=== PATIENT | female | born 1985 | race Caucasian/White ===

== ENCOUNTER 2020-03-23 11:26 | Outpatient (REF) | payer OTHER, SELFPAY ==
[2020-03-23 13:33] LABS: MANUAL DIFF FLAG NO
[2020-03-23 13:42] LABS: Basophils Percent Auto 0.3 % (0-2); Eosinophils Absolute Auto 0.1 X10*3/uL (0.0-0.4); Eosinophils Percent Auto 0.8 % (0-4); Hematocrit 41.8 % (37-47); Imm Gran Abs Auto 0.01 X10*3/uL (0.00-0.03); Imm Gran Pct Auto 0.2 % (0.0-0.4); Lymphocytes Percent Auto 33.1 % (20-40); Mean Corpuscular HGB Conc 33.5 g/dl (31.0-35.0); Mean Corpuscular Hemoglobin 30.5 pg (27.0-33.0); Mean Corpuscular Volume 91.1 fL (80-98); Monocytes Absolute Auto 0.5 X10*3/uL (0.1-1.2); Monocytes Percent Auto 8.3 % (2-11); Neutrophils Absolute Auto 3.5 X10*3/uL (2.0-8.3); Neutrophils Percent Auto 57.3 % (45-73); Platelet Count 168 X10*3/uL (160-400); Red Blood Count 4.59 X10*6/uL (4.20-5.50); Red Cell Distribution Width 12.3 % (11.0-16.0); White Blood Count 6.2 X10*3/uL (4.8-10.8)
[2020-03-23 13:44] LABS: Glucose Urine UA NEG (NEG); Leukocyte Esterase Urine NEG (NEG); Nitrite Urine NEG (NEG); PH 7.5 (5.0-8.0); Urine Blood NEG (NEG); Urine Ketones NEG (NEG); Urine Protein NEG (NEG-TRACE)
[2020-03-23 13:46] LABS: Appearance Urine CLEAR; Color Urine YELLOW
[2020-03-23 14:15] LABS: Alanine Aminotransferase 12 U/L (0-31); Albumin Level 4.3 g/dL (3.5-5.0); Alkaline Phosphatase 42 U/L (39-117); Anion Gap 13 (12-20); Aspartate Amino Transferase 13 U/L (5-31); Bilirubin Direct < 0.2 mg/dL (0.0-0.5); Bilirubin Total 0.3 mg/dL (0.0-1.0); Blood Urea Nitrogen 16 mg/dL (9-16); Calcium 9.1 mg/dL (8.4-10.2); Carbon Dioxide 27 mmol/L (22-29); Chloride 106 mmol/L (96-108); Cholesterol 190 mg/dL; Estimated Glomerular Filt Rate > 60; Glucose Fasting 74 mg/dL (60-99); HDL Cholesterol 55 mg/dL; LDL Cholesterol Calculated 105 mg/dl; Potassium 4.6 mmol/l (3.3-5.1); Sodium 141 mmol/L (135-145); Total Protein 6.9 g/dL (6.5-8.0); Triglycerides 153 mg/dL
[2020-03-23 14:32] LABS: Thyroid Stimulating Hormone 0.49 mIU/mL (0.32-4.0)
== END 2020-03-23 11:27 | disposition home or self-care (01) ==
LOC: HO.WFDLDS 11:26
PROVIDERS: PCP Hospitalist; Visit Provider Hospitalist
DX: Z00.00 Encounter for general adult medical examination without abnormal findings (principal)
CPT/HCPCS: 36415; 80048; 80061; 80076; 81003; 84443; 85025

== ENCOUNTER 2020-05-04 11:45 | Outpatient (REF) | payer OTHER, SELFPAY ==
--- NOTE | 2020-05-04 11:53 | XR_ITS ---
EXAMINATION: XR ABDOMEN KUB CLINICAL INDICATION: Gastroenteritis and colitis and colitis COMPARISON: None TECHNIQUE: AP view of the abdomen. FINDINGS: The bowel gas pattern is normal. There is no evidence of free air. No calcifications are seen. Bony structures are unremarkable. XR/XR KUB IMPRESSION: Unremarkable examination.
== END 2020-05-04 11:46 | disposition home or self-care (01) ==
LOC: HO.XRAY 11:45
PROVIDERS: PCP Hospitalist; Visit Provider Hospitalist
DX: K52.9 Noninfective gastroenteritis and colitis, unspecified (principal)
CPT/HCPCS: 74018

== ENCOUNTER 2020-07-27 10:31 | Outpatient (REF) | payer OTHER, SELFPAY ==
[2020-07-27 13:55] LABS: MANUAL DIFF FLAG NO
[2020-07-27 13:59] LABS: Basophils Percent Auto 0.4 % (0-2); Eosinophils Absolute Auto 0.1 X10*3/uL (0.0-0.4); Eosinophils Percent Auto 1.7 % (0-4); Hematocrit 40.2 % (37-47); Hemoglobin 13.5 g/dl (12.0-16.0); Imm Gran Abs Auto 0.01 X10*3/uL (0.00-0.03); Imm Gran Pct Auto 0.2 % (0.0-0.4); Lymphocytes Absolute Auto 1.5 X10*3/uL (1.2-4.9); Lymphocytes Percent Auto 32.6 % (20-40); Mean Corpuscular HGB Conc 33.6 g/dl (31.0-35.0); Mean Corpuscular Hemoglobin 30.3 pg (27.0-33.0); Mean Corpuscular Volume 90.3 fL (80-98); Mean Platelet Volume 10.7 fL (9.4-12.3); Monocytes Absolute Auto 0.5 X10*3/uL (0.1-1.2); Monocytes Percent Auto 9.8 % (2-11); Neutrophils Absolute Auto 2.6 X10*3/uL (2.0-8.3); Neutrophils Percent Auto 55.3 % (45-73); Platelet Count 221 X10*3/uL (160-400); Red Blood Count 4.45 X10*6/uL (4.20-5.50); Red Cell Distribution Width 12.7 % (11.0-16.0); White Blood Count 4.7 X10*3/uL (4.8-10.8)
[2020-07-27 14:34] LABS: Alanine Aminotransferase 12 U/L (0-31); Aspartate Amino Transferase 13 U/L (5-31)
[2020-07-27 14:42] LABS: Valproate 92.2 mcg/mL (50.0-100.0)
== END 2020-07-27 10:32 | disposition home or self-care (01) ==
LOC: HO.HMGCLDS 10:31
PROVIDERS: PCP Hospitalist; Visit Provider Nurse Practitioner Psychiatric/Mental Health
DX: F31.81 Bipolar II disorder (principal)
CPT/HCPCS: 36415; 80164; 84450; 84460; 85025

== ENCOUNTER 2020-09-09 12:27 | Outpatient (REF) | payer OTHER, SELFPAY ==
--- NOTE | ~2020-09-09 | XR_ITS ---
EXAMINATION: XR HAND, BILATERAL CLINICAL INFORMATION: Lupus erythematosus COMPARISON: None available at the time of this dictation. TECHNIQUE: Frontal lateral oblique view of each hand total of 6 views of the hand were obtained. Bilateral scaphoid view. FINDINGS: There is no fracture or dislocation. Radiocarpal, intercarpal, carpometacarpal, metacarpophalangeal and interphalangeal joints are intact. There are no osteolytic or osteoblastic lesions. There are no bone erosions. Surrounding soft tissue unremarkable. XR/XR hand wrist LT IMPRESSION: No radiographic evidence of significant osseous changes.
--- NOTE | ~2020-09-09 | XR_ITS ---
EXAMINATION: XR HAND, BILATERAL CLINICAL INFORMATION: Lupus erythematosus COMPARISON: None available at the time of this dictation. TECHNIQUE: Frontal lateral oblique view of each hand total of 6 views of the hand were obtained. Bilateral scaphoid view. FINDINGS: There is no fracture or dislocation. Radiocarpal, intercarpal, carpometacarpal, metacarpophalangeal and interphalangeal joints are intact. There are no osteolytic or osteoblastic lesions. There are no bone erosions. Surrounding soft tissue unremarkable. XR/XR hand wrist RT IMPRESSION: No radiographic evidence of significant osseous changes.
[2020-09-09 13:48] LABS: MANUAL DIFF FLAG NO
[2020-09-09 13:54] LABS: Basophils Percent Auto 0.3 % (0-2); Eosinophils Absolute Auto 0.1 X10*3/uL (0.0-0.4); Eosinophils Percent Auto 0.9 % (0-4); Hematocrit 38.9 % (37-47); Hemoglobin 13.2 g/dl (12.0-16.0); Imm Gran Abs Auto 0.02 X10*3/uL (0.00-0.03); Imm Gran Pct Auto 0.3 % (0.0-0.4); Lymphocytes Absolute Auto 2.1 X10*3/uL (1.2-4.9); Lymphocytes Percent Auto 37.2 % (20-40); Mean Corpuscular HGB Conc 33.9 g/dl (31.0-35.0); Mean Corpuscular Hemoglobin 30.3 pg (27.0-33.0); Mean Corpuscular Volume 89.2 fL (80-98); Mean Platelet Volume 10.4 fL (9.4-12.3); Monocytes Absolute Auto 0.4 X10*3/uL (0.1-1.2); Neutrophils Absolute Auto 3.1 X10*3/uL (2.0-8.3); Neutrophils Percent Auto 54.3 % (45-73); Platelet Count 165 X10*3/uL (160-400); Red Blood Count 4.36 X10*6/uL (4.20-5.50); Red Cell Distribution Width 12.3 % (11.0-16.0); White Blood Count 5.7 X10*3/uL (4.8-10.8)
[2020-09-09 14:13] LABS: Alanine Aminotransferase 13 U/L (0-31); Albumin Level 4.1 g/dL (3.5-5.0); Alkaline Phosphatase 40 U/L (39-117); Anion Gap 12 (12-20); Aspartate Amino Transferase 15 U/L (5-31); Bilirubin Total 0.3 mg/dL (0.0-1.0); Blood Urea Nitrogen 17 mg/dL (9-16); C Reactive Protein 0.09 mg/dL (< or = 0.50); Calcium 9.5 mg/dL (8.4-10.2); Carbon Dioxide 27 mmol/L (22-29); Chloride 104 mmol/L (96-108); Estimated Glomerular Filt Rate > 60; Glucose Random 96 mg/dL (60-115); Potassium 3.9 mmol/L (3.3-5.1); Sodium 139 mmol/L (135-145); Total Protein 6.6 g/dL (6.5-8.0)
[2020-09-09 14:51] LABS: Erythrocyte Sedimentation Rate 4 MM/HR (0-20)
[2020-09-09 18:35] LABS: Glucose Urine UA NEG (NEG); Leukocyte Esterase Urine NEG (NEG); Nitrite Urine NEG (NEG); Specific Gravity - Urine 1.015 (1.005-1.025); Urine Blood NEG (NEG); Urine Ketones NEG (NEG); Urine Protein NEG (NEG-TRACE)
[2020-09-09 18:37] LABS: Appearance Urine CLEAR; Color Urine YELLOW
[2020-09-09 18:41] LABS: Bacteria Urine TRACE /LPF; RBC Urine 0 /HPF (0); Squamous Epithelial Cell Urine TRACE /LPF; WBC Urine 0 /HPF (0-4)
[2020-09-10 13:12] LABS: Anti DNA DS Antibody 1 IU/mL; Antibody to SS-A Antigen >8.0 POS AI (<1.0 NEG); Antibody to SS-B Antigen <1.0 NEG AI (<1.0 NEG); SM/Ribonucleoprotein Ab <1.0 NEG AI (<1.0 NEG); Smith Protein <1.0 NEG AI (<1.0 NEG)
[2020-09-10 22:28] LABS: Anti Nuclear Antibody Screen POSITIVE (NEGATIVE); Anti Nuclear Antibody Titer 1:40 titer
[2020-09-13 19:51] LABS: Complement C3 87 mg/dL (83-193)
== END 2020-09-09 12:28 | disposition home or self-care (01) ==
LOC: HO.XRAY 12:27
PROVIDERS: PCP Hospitalist; Referring Provider Hospitalist; Visit Provider Student in an Organized Health Care Education/Training Program
DX: L93.2 Other local lupus erythematosus (principal)
CPT/HCPCS: 36415; 73110; 73130; 80053; 81001; 85025; 85652; 86038; 86039; 86140; 86160; 86225; 86235; 99202

== ENCOUNTER → 2020-09-24 13:07 | Outpatient (BNVA) | payer OTHER, SELFPAY | PROVIDERS: PCP Hospitalist; Visit Provider Student in an Organized Health Care Education/Training Program ==

== ENCOUNTER 2023-09-24 09:37 | Outpatient (AMB) | payer OTHER, SELFPAY ==
[2023-09-24 10:40] VITALS: BP 128/76; PULSE 73; TEMP 36.6; O2SAT 99; BMI 28.6
--- NOTE | 2023-09-24 10:40 | AM.OFFWIN_ITS ---
Intake Vital Signs 09/24/23 10:40 Height 5 ft 3 in Weight 161 lb 8 oz BMI 28.6 BP 128/76 Blood Pressure Location Lt brachial Position Sitting Pulse 73 Pulse Source Pulse Oximeter Temp 97.8 F Temp Source Oral Pulse Oximetry (%) 99 Oxygen Delivery Method Room Air Intake Visit Reasons: EP ?RT pink Eye Intake Note: Pt presents to the office today for c/o ? pink eye in right eye. She states it started sunday and she thought it was a stye but now she states she is having green discharge coming out of it and it is crusting over. Allergies No Known Allergies [No Known Allergies*] Allergy (Verified 09/24/23 10:52) Medication List - Last Reconciled 09/24/23 by Castillo Herbert MD divalproex ER mg PO .three times a day ibuprofen 800 mg PO Q8H PRN propranolol 20 mg PO BID HPI EP ?RT pink Eye HPI Details 38 yr old female presents to the office for a sick visit. Pain and discharge from the right eye. Does not use contact lenses. Crusting in the right eye. [facility] Surgical History No pertinent past surgical history Family History Father No problems noted. Mother No problems noted. Social History Alcohol intake: never Cigarettes Per Day: 7 Years Smoked: 15 Physical Exam Vital Signs: Last Vital Signs Temp 97.8 F 09/24/23 10:40 Pulse 73 09/24/23 10:40 BP 128/76 09/24/23 10:40 Pulse Ox 99 09/24/23 10:40 Oxygen Delivery Method Room Air 09/24/23 10:40 BMI result Body Mass Index 28.6 Eyes Other: Right eye: Bulbar conjunctiva congestion. Cornea is clear. AC is clear. No digital tenderness. Assessment & Plan Assessment & Plan (1) Conjunctivitis: Code(s): H10.9 - Unspecified conjunctivitis Plan: Emycin oph ointment called in. If sx not better to follow up here. Coding Level of Care Code Est Pt Level 3 (17196) Diagnoses Conjunctivitis H10.9
== END 2023-09-24 11:35 | disposition home or self-care (01) ==
PROVIDERS: PCP Hospitalist; Visit Provider Internal Medicine
DX: H10.9 Unspecified conjunctivitis (principal)
CPT/HCPCS: 99213

== ENCOUNTER 2024-01-29 10:08 | Outpatient (AMB) | payer OTHER, SELFPAY ==
--- NOTE | 2024-01-29 10:58 | AM.OFFWIN_ITS ---
Intake Vital Signs 01/29/24 11:05 Weight 161 lb BP 120/78 Blood Pressure Location Lt brachial Position Sitting Pulse 78 Pulse Source Pulse Oximeter Temp 97.7 F Temp Source Oral Pulse Oximetry (%) 98 Oxygen Delivery Method Room Air Intake Visit Reasons: EP ?ear Infection [phone] Intake Note: Patient here for possible bilat ear infection which has been present for about 3-4 days. Patient Tobacco Use Status: Current everyday Tobacco user Allergies No Known Allergies [No Known Allergies*] Allergy (Verified 01/29/24 11:00) Do you need a note to return to daycare/school/sports/work: No HPI HPI Comments History of Present Illness Details Patient is a 38-year-old female with chronic ear infections complaining of ear pain in both ears, she states the left is worse than the right. She states [place] and she knows her allergies were triggered by the dust and she forgot to bring her Flonase with her so she feels like everything got back up and now here ears are infected. She states she typically uses Flonase every night but forgot to bring her Flonase camping. She says she takes an allergy pill every day as well. She denies any fevers, sinus pain but does admit to some head congestion. She denies any change in her hearing. [facility] Surgical History No pertinent past surgical history Family History Father No problems noted. Mother No problems noted. Social History Alcohol intake: never Patient Tobacco Use Status: Current everyday Tobacco user Cigarettes Per Day: 7 Years Smoked: 15 Review of Systems Const All systems reviewed & are unremarkable except as noted in HPI and below Physical Exam Vital Signs: Last Vital Signs Temp 97.7 F 01/29/24 11:05 Pulse 78 01/29/24 11:05 BP 120/78 01/29/24 11:05 Pulse Ox 98 01/29/24 11:05 Oxygen Delivery Method Room Air 01/29/24 11:05 Const General: cooperative, healthy appearing, comfortable and no acute distress Orientation/consciousness: patient oriented x3 Limitations: no limitations HEENT Head: Yes normal to inspection Ears: hearing grossly normal bilaterally, external ears normal, TM normal on the right (erythema), mastoids normal and TM abnormal (left) wth effusion, erythematous and with loss of landmarks General nose exam: Normal external nose present, Normal nares present and No nasal discharge present Face and sinus: Yes normal facial exam and Yes sinuses nontender Mouth: Normal oral and palatal mucosa present and moist mucous membranes Throat: Yes tonsils normal, Yes uvula midline and Yes posterior oropharynx abnormal (Erythema) Eyes General: appearance normal, both eyes and all related structures Neck Neck: Yes normal visual inspection Resp Effort & Inspection: normal respiratory effort and able to speak in complete sentences Skin General skin exam: no rashes or lesions noted Neuro General: patient oriented x3 Extrem General: Yes normal to inspection and Yes no clubbing, cyanosis or edema Assessment & Plan Assessment & Plan (1) Otitis media: Code(s): H66.90 - Otitis media, unspecified, unspecified ear Qualifiers: Otitis media type: mucoid Chronicity: acute Laterality: left Qualified Code(s): H65.192 - Other acute nonsuppurative otitis media, left ear Plan: Sent amoxicillin to pharmacy, recommended resuming Flonase and allergy pill. Plan See above Medications: New amoxicillin 875 mg PO Q12H 10 tabs 0RF Coding Level of Care Code Est Pt Level 3 (25771) Diagnoses Acute mucoid otitis media of left ear H65.192 Otitis media type: mucoid Chronicity: acute Laterality: left
[2024-01-29 11:05] VITALS: BP 120/78; PULSE 78; TEMP 36.5; O2SAT 98
== END 2024-01-29 11:31 | disposition home or self-care (01) ==
PROVIDERS: PCP Hospitalist; Visit Provider Physician Assistant
DX: H65.192 Other acute nonsuppurative otitis media, left ear (principal)
CPT/HCPCS: 99213

== ENCOUNTER 2025-05-12 11:19 | Outpatient (AMB) | payer OTHER, SELFPAY ==
--- NOTE | 2025-05-12 11:23 | A.OFFVIS_ITS ---
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 Complaining of vulvovaginal irritation/itching no associated foul odor Last Pap/HPV was 10 years ago Last Mammogram was 2 months ago at [place] and was negative according to the patient no records available [facility] Medical History (Updated 05/12/25 @ 11:55 by Escobar Tejada MD) History of alcohol abuse Surgical History (Updated 05/12/25 @ 11:32 by Cori Banegas CMA) History of placement of ear tubes Hx of adenoidectomy Family History (Updated 05/12/25 @ 11:33 by Cori Banegas CMA) Father Alcoholism Mother No problems noted. 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 [employer] Gender identity: Female Female Reproductive History Menstrual Duration of menses: 3-5 days Date of last menstrual period: 04/30/25 Total pregnancies: 0 Review of Systems Const All systems reviewed & are unremarkable except as noted in HPI and below Card Reports as per HPI Resp Reports as per HPI GI Reports as per HPI and Reports no additional complaints Reports as per HPI Physical Exam Vital Signs: BMI result Body Mass Index 26.9 Const General: cooperative, healthy appearing and comfortable Chest Chest palpation & inspection: normal inspection of the chest and normal palpation of entire chest wall Breast/axilla inspection: normal inspection of the breasts and normal inspection of the axillae Breast/axilla palpation: normal palpation of the breasts, normal palpation of the axillae and no axillary lymphadenopathy Resp Effort & Inspection: normal respiratory effort Auscultation: clear to auscultation bilaterally Percussion: percussion normal Cardio Palpation: normal PMI Rate: regular rate Rhythm: regular rhythm Heart sounds: no murmurs and no rubs Peripheral pulses: Peripheral pulses 2+ throughout GI Inspection: Yes normal to inspection Palpation (GI): Soft to palpation, nontender, no guarding, not rigid and No hepatosplenomegaly present Percussion: Yes normal to percussion Auscultation: normal bowel sounds Rectal Exam - Female: deferred General: Yes bladder normal to palpation External Female Exam: No lesion Speculum Exam - Vagina: normal appearance of the vagina, normal palpation, normal vaginal discharge and not erythematous Speculum Exam - Cervix: normal appearance of the cervix and normal palpation Bimanual exam- vagina & uterus: normal bimanual exam, normal palpation, uterine size normal, bladder normal to palpation, consistency normal, normal palpation and other (Endocervical polyp) Bimanual Exam- Adnexa, other: normal adnexae, no masses and no tenderness Office Procedures TRANSPORTATION SPECIALIST Biopsy Before the procedure was started, discussed with the patient the procedure technique, alternatives & all the risks associated with the procedure including but not limited to: bleeding , infection, uterine perforation, injury to bladder, vessels, bowels, possible need for transfusion with all its risks, and others. All questions were answered, the patient verbalized understanding and signed the consent. Urine test done in the office was negative Using a long Ale Clamp the endocervical polyp was grasped and twisted around till it came off, hemostasis was secured using pressure. The patient tolerated the procedure well. Instructions were given to the patient to call if bleeding, temp>100.4 occur. The patient verbalized understanding and agreed with the plan. This note was generated with a voice recognition program. Some errors may have been overlooked during the review of this note. Sometimes these errors may affect the content or meaning of a given sentence. [id number]-Lehtca of Cervix Procedure code (CPT) selection complete Assessment & Plan Assessment & Plan (1) Well woman exam: Code(s): Z01.419 - Encounter for gynecological examination (general) (routine) without abnormal findings Category: Medical Plan: Cotesting done. Instructions given the patient to schedule next screening Mammogram in 03/22. Counseled the patient about the recommended dietary allowance of 1000 mg of Calcium & 600 IU of vitamin D. The patient was instructed to perform monthly self-breast exams and to schedule an annual exam in a year; All questions answered and the patient verbalized understanding. Instructed the patient to schedule annual exam in a year (2) Vulvovaginitis: Code(s): N76.0 - Acute vaginitis Category: Medical Plan: GC/CT, Bacterial Vaginosis panel taken, Terazol 0.8% q.h.s. for 3 days was sent to the patient's pharmacy. The patient was instructed to call if symptoms don't improve in 48 hours. (3) Endocervical polyp: Code(s): N84.1 - Polyp of cervix uteri Category: Medical Plan: Discussed with the patient the finding on pelvic exam endocervical polyp, recommended polypectomy , the patient agreed, procedure done, see procedure note Orders: Orders AMB TRANSPORTATION SPECIALIST Biopsy Today N84.1 - Polyp of cervix uteri Coding Level of Care Code New Pt Level 3 (49761) Procedure Only Diagnoses Well woman exam Z01.419 Vulvovaginitis N76.0 Endocervical polyp N84.1 CPT Codes TRANSPORTATION SPECIALIST Biopsy - CPT: 12971-Zlhkcd of Cervix ([id number])
[2025-05-12 11:26] VITALS: BP 110/70; BMI 26.9
--- OUTSIDE RECORDS SUMMARY | 2025-05-12 14:54 | XMS_ITS | Clinical Summary ---
Author Organization [facility] [address] [place] [address] [place] [phone] Phone Care Team Providers Care Publication Designer Name Role Phone Zoe Clements MD Primary Care Provider [phone] Allergies No known active allergies Medications divalproex (DEPAKOTE ER) 500 mg 24 hr tablet Take 1 tablet (500 mg total) by mouth 1 (one) time each day. 1 in the morning - 2 at night Active propranoloL (INDERAL) 40 mg tablet Take 1 tablet (40 mg total) by mouth 2 (two) times a day. 025 Active cetirizine (ZyrTEC) 10 mg tablet Take 1 tablet (10 mg total) by mouth 1 (one) time each day. Active omeprazole (PriLOSEC) [address] capsuleIndication s:Gastroesophagea l reflux disease, unspecified whether esophagitis present,Nausea Take 1 capsule (40 mg total) by mouth 1 (one) time each day. Do not crush or chew. 30 each 025 2025 Active bisacodyL (DULCOLAX) 5 mg EC tablet Take 2 tablets by mouth right before beginning bowel prep. See instructions provided by the office 2 tablet 025 Active polyethylene glycol (Golytely) 236-22.74-6.74 -5.86 gram solution Take 4L by mouth once for one dose. May substitue any PEG. Starting at 6PM the night before your procedure drink 1 8oz glasses at your own pace until you complete half of the gallon. Finish 2nd half of the gallon 5 hours before your procedure. 4000 mL 025 Active ondansetron ODT (ZOFRAN-ODT) 8 mg disintegrating tablet DISSOLVE ONE TABLET ON TONGUE EVERY 8 HOURS IF NEEDE FOR NAUSEA AND VOMITING 12 tablet 025 Active ondansetron ODT (ZOFRAN-ODT) 8 mg disintegrating tablet DISSOLVE ONE TABLET ON TONGUE EVERY 8 HOURS IF NEEDED FOR NAUSEA AND VOMITING 12 tablet 025 2024 Discontinued Active Problems Problem Noted Date Diagnosed Date Cervical dysplasia 09/26/2024 Genital warts 09/26/2024 Lupus erythematosus 09/26/2024 Sjogren's syndrome 09/26/2024 Tobacco dependence syndrome 09/26/2024 Surgical History Surgery Date Site/Laterality Comments ADENOIDECTOMY MYRINGOTOMY W/ TUBES COLONOSCOPY 11/05/2024 10 yr recall ESOPHAGOGASTRODUODENOSCOPY 11/05/2024 unremarkable, negative h.pylori and celiac Medical History Medical History Date Comments GERD (gastroesophageal reflux disease) Sjogren syndrome ([facility] V24) Lupus erythematosus subcutaneous Family History Medical History Relation Name Comments Breast cancer Maternal Grandmother Colon cancer Neg Hx Colon polyps Neg Hx Relation Name Status Comments Maternal Grandmother Social History Tobacco Use Types Packs/Day Years Used Date Smoking Tobacco: Every Day Cigarettes Smokeless Tobacco: Current Tobacco Cessation:Ready to Q uit: Not Asked; Counseling Given: Not Answered Alcohol Use Standard Drinks/Week Comments Not Currently 0 (1 standard drink = 0.6 oz pure alcohol) recovering alcoholic, sober since 2019 Housing Instability Answer Date Recorde d Are you worried that in the next 2 months you may not have stable housing? No 09/05/2024 Food Access & Nutrition Answer Date Rec orded Do you have access to a vari ety of food including fruits and vegetables? Yes 09/05/2024 Access to Healthcare Answer Date Record ed Within the last 3 months, bin w many times did you visit the emergency department for your medical care? 0 09/05/2024 Health Literacy Answer Date Recorded How often do you need to hav e someone help you when you read instructions, pamphlets, or other written material from your doctor or pharmacy? Never 09/05/2024 Caregiver: How often do you need to have someone help you when you read instructions, pamphlets, or other written material from your doctor or pharmacy? Not on file 09/05/2024 Financial Risk Answer Date Recorded How hard is it for you to pa y for the very basics like food, housing, medical care, and air conditioning / heating? Somewhat hard 09/05/2024 Transportation Answer Date Recorded Has the lack of transportati on kept you from meetings, work, or from getting things needed for daily living? No Has the lack of transportati on kept you from medical appointments or from getting medications? No 09/05/2024 Social Isolation Answer Date Recorded How often do you feel lonely or isolated from th ose around you? Never 09/05/2024 Food Risk Answer Date Recorded Within the past 12 months we worried whether our food would run out before we got money to buy more. Never true 09/05/2024 Within the past 12 months th e food we bought just didn't last and we didn't have money to get more. Never true 09/05/2024 Dependent Care Answer Date Recorded Do you need help finding or paying for care for your loved ones. For example, early childhood assistant or elderly care for an older adult? No 09/05/2024 Education Answer Date Recorded Do you think completing more education or training, like finishing a GED, going to college, or learning a trade, would be helpful for you? No 09/05/2024 Employment and Income Answer Date Recor ded During the last four weeks, have you been actively looking for work? No 09/05/2024 Living Situation Answer Date Recorded What is your living situation? Unrecognized valu e 09/05/2024 Interpersonal Safety Answer Date Record ed Physical Abuse Unrecognized value 11/05/2024 Verbal Abuse Unrecognized value 11/05/2024 Comments No Sex and Gender Information Value Date Recorded Sex Assigned at Not on file Legal Sex Female 2:39 PM EST Gender Identity Not on file Sexual Orientation Not on file Obstetrics History Para Term AB IAB SAB Ectopic Multiple Livin g Live Births 0 0 0 0 Last Filed Vital Signs Vital Sign Reading Time Taken Comments Blood Pressure 131/96 11/05/2024 8:36 AM EDT Pulse 74 11/05/2024 8:36 AM EDT Temperature 36.3 C (97.3 F) 11/05/2024 8:16 AM EDT Respiratory Rate 11 11/05/2024 8:36 AM EDT Oxygen Saturation 99% 11/05/2024 8:36 AM EDT Inhaled Oxygen Concentration - - Weight 73.6 kg (162 lb 3.2 oz) 11/19/2024 8:05 A M EDT Height 162.6 cm (5' 4 ) 11/19/2024 8:05 AM EDT Body Mass Index 27.84 11/19/2024 8:05 AM EDT Plan of Treatment Upcoming Encounters Date Type Department Care Team (Late st Contact Info) Description 09/14/2025 10:00 AM EDT Appointment Radiology Department - [address] [phone] 09/15/2025 8:00 AM EDT Office Visit [facility] - [address] [phone] Zoe Clements MD [address] [place] [address] Health Maintenance Due Date Last Done Comments Pneumococcal Vaccine: Pediatrics (0 to 5 Years) and At-Risk Patients (6 to 49 Years) (1 of 2 - PCV) 2002 HPV Vaccines (1 - 3-dose SCD M series) 2010 COVID-19 Vaccine (3 - 2024-2 6 season) 2025 09/18/2020, 08/21/2020 Influenza Vaccine (#1) 2025 , 03/25/2015 Cervical Cancer Screening: Pap Smear 05/28/2025 Postponed from 04/10 (Patient Refused) HIV Screening 05/28/2025 Postponed from 03/04/2024 (Patient Refused) Hepatitis B Vaccines (3 of 3 - 19+ 3-dose series) 05/28/2025 02/01/2006, 01/02/2006 Postponed from 07/05/2006 (Patient Refused) Social Influencers of Health Screening 09/05/2025 09/05/2024 DTaP,Tdap,and Td Vaccines (3 - Td or Tdap) 05/30/2026 05/30/2016, 01/04/2006 Breast Cancer Screening 09/08/2026 09/08/2024 Cholesterol Screening (Lipid Panel) 09/22/2029 09/22/2024 RSV Immunization Adult Patients (1 - 1-dose 75+ series) 2058 MMR Vaccines Aged Out 01/04/2006 No longer eligi ble based on patient's age to complete this topic Depression Screening Completed 09/05/2024 Hepatitis C Screening Completed 09/22/2024 HIB Vaccines Aged Out No longer eligi ble based on patient's age to complete this topic Hepatitis A Vaccines Aged Out No long er eligible based on patient's age to complete this topic IPV Vaccines Aged Out No longer eligi ble based on patient's age to complete this topic Meningococcal ACWY Vaccine Aged Out N o longer eligible based on patient's age to complete this topic Meningococcal B Vaccine Aged Out No l onger eligible based on patient's age to complete this topic RSV Immunization Patients Under 20 months Aged Out No longer eligible b ased on patient's age to complete this topic Varicella Vaccines Aged Out No longer eligible based on patient's age to complete this topic Procedures Procedure Name Priority Date/Time Associated Diagnosis Comments HEPATITIS C ANTIBODY Routine 09/22/2024 11:23 AM EDT Annual physical exam LIPID PANEL WITH REFLEX TO DIRECT LDL Routine 09/22/2024 11:23 AM EDT Annual physical exam MG MAMMO DIGITAL SCREENING W LATANYA BILAT Routine 09/08/2024 10:18 AM EDT Annual physical exam from Last 3 Months or Most Recently Relevant to Health Maintenance Results * Hepatitis C antibody (09/22/2024 11:23 AM EDT) Hepatitis C Antibody Negative Negative LAB CHEMISTRY METHOD 09/22/2024 5:38 PM EDT [facility] Blood Venous blood specimen / Unknown Venipuncture / Unknown 09/22/2024 11:23 AM EDT 09/22/2024 11:23 AM EDT Zoe Clements MD LAB BLOOD ORDERABLES Final Result [facility] [address] [place] [address], [place] [phone] * Lipid panel with reflex to direct LDL (09/22/2024 11:23 AM EDT) Cholesterol 176 0 - 200 mg/dL LAB CHEMISTRY METHOD 09/22/2024 4:07 PM EDT [facility] Triglycerides 115 0 - 150 mg/dL LAB CHEMISTRY METHOD 09/22/2024 4:07 PM EDT [facility] HDL 58 >=40 mg/dL LAB CHEMISTRY METHOD 09/22/2024 4:07 PM EDT [facility] LDL Calculated 95 0 - 100 mg/dL LAB CHEMISTRY METHOD 09/22/2024 4:07 PM EDT [facility] VLDL Cholesterol Brijesh 23 mg/dL LAB CHEMISTRY METHOD 09/22/2024 4:07 PM EDT [facility] Non HDL Chol. (LDL+VLDL) 118 <145 mg/dL LAB CHEMISTRY METHOD 09/22/2024 4:07 PM EDT [facility] Chol/HDL Ratio 3.0 0.0 - 4.4 LAB CHEMISTRY METHOD 09/22/2024 4:07 PM EDT [facility] Blood Venous blood specimen / Unknown Venipuncture / Unknown 09/22/2024 11:23 AM EDT 09/22/2024 11:23 AM EDT us Zoe Clements MD LAB BLOOD ORDERABLES Final Result [facility] [address] [place] [address], [place] [phone] * MG Mammo Digital Screening w Latanya bilat (09/08/2024 10:18 AM EDT) Anatomical Region Laterality Modality Breast Bilateral Mammography 09/08/2024 8:39 PM EDT Impressions 09/08/2024 8:43 PM EDT 1. No mammographic evidence of malignancy 2. Heterogeneous breast parenchyma BI-RADS CATEGORY: 2 - BENIGN RECOMMENDATION: Screening bilateral mammogram is recommended in 1 year. Patient may be eligible for screening breast MRI due to dense breasts and family history Mammo Location: [facility], [address] [place] [address], [id number], . -------- FINAL REPORT -------- Dictated By: Jennifer Phillips Dictated Date: 09/08/2024 20:39 ET Assigned Physician: Jennifer Phillips Reviewed and Electronically Signed By: Jennifer Phillips Signed Date: 09/08/2024 20:43 ET Workstation ID: [id number] Transcribed By: Self Edit Transcribed Date: 09/08/2024 20:39 ET Narrative 09/08/2024 8:43 PM EDT A BILATERAL DIGITAL 3D SCREENING MAMMOGRAPHY HISTORY: Routine screening. Family history of breast cancer in grandmother. COMPARISON: Baseline Technique: Bilateral full field digital mammography (3D) was performed using standard CC and MLO projections , bilateral exaggerated CC views CAD was used to evaluate this mammogram. FINDINGS: Right: No suspicious masses, groups of microcalcification or areas of architectural distortion identified. Typically benign parenchymal asymmetries. Left: No suspicious masses, groups of microcalcification or areas of architectural distortion identified. Typically benign parenchymal asymmetries. BREAST DENSITY: C - The breasts are heterogeneously dense which may obscure small masses. Procedure Note Jennifer Phillips MD - 09/08/2024 A BILATERAL DIGITAL 3D SCREENING MAMMOGRAPHY HISTORY: Routine screening. Family history of breast cancer ingrandmother. COMPARISON: Baseline Technique: Bilateral full field digital mammography (3D) was performedusing standard CC and MLO projections , bilateral exaggerated CC views CAD was used to evaluate this mammogram. FINDINGS: Right: No suspicious masses, groups of microcalcification or areas ofarchitectural distortion identified. Typically benign parenchymalasymmetries. Left: No suspicious masses, groups of microcalcification or areas ofarchitectural distortion identified. Typically benign parenchymalasymmetries. BREAST DENSITY: C - The breasts are heterogeneously dense which mayobscure small masses. IMPRESSION: 1. No mammographic evidence of malignancy 2. Heterogeneous breast parenchyma BI-RADS CATEGORY: 2 - BENIGN RECOMMENDATION: Screening bilateral mammogram is recommended in 1 year. Patient may beeligible for screening breast MRI due to dense breasts and familyhistory Mammo Location: [facility], [address] [place] [address], [id number], . -------- FINAL REPORT -------- Dictated By: Jennifer Phillips Dictated Date: 09/08/2024 20:39 ET Assigned Physician: Jennifer Phillips Reviewed and Electronically Signed By: Jennifer Phillips Signed Date: 09/08/2024 20:43 ET Workstation ID: [id number] Transcribed By: Self Edit Transcribed Date: 09/08/2024 20:39 ET Zoe Clements MD IMG BI PROCEDURES Final Res ult from Last 3 Months or Most Recently Relevant to Health Maintenance [place] [address] [place] [id number] [employer] Care Teams Publication Designer Relationship Specialty Start Date End Date Zoe Clements MD [address] [place] [id number] PCP - General Internal Medicine 05/08/24
== END 2025-05-12 11:57 | disposition home or self-care (01) ==
LOC: HO.HWS 11:19
PROVIDERS: Visit Provider Obstetrics & Gynecology
DX: Z01.419 Encounter for gynecological examination (general) (routine) without abnormal findings (principal); N76.0 Acute vaginitis; N84.1 Polyp of cervix uteri; Z32.02 Encounter for pregnancy test, result negative
CPT/HCPCS: 57500; 99203

== ENCOUNTER 2025-05-12 11:19 | Outpatient (REF) | payer OTHER, SELFPAY ==
[2025-05-12 18:09] LABS: Bacterial Vaginosis PCR NEGATIVE (Negative); Candida Group PCR NOT DETECTED (Not Detect); Candida glab krusei PCR NOT DETECTED (Not Detect); Trichomonas vaginalis PCR NOT DETECTED (Not Detect)
[2025-05-12 18:19] LABS: CT PCR NOT DETECTED (Not Detect.); NG PCR NOT DETECTED (Not Detect.)
== END 2025-05-12 11:20 | disposition home or self-care (01) ==
LOC: HO.LNP 11:19
PROVIDERS: Visit Provider Obstetrics & Gynecology
DX: Z01.419 Encounter for gynecological examination (general) (routine) without abnormal findings (principal); N84.1 Polyp of cervix uteri; N76.0 Acute vaginitis; Z32.02 Encounter for pregnancy test, result negative; Z11.51 Encounter for screening for human papillomavirus (HPV); Z20.2 Contact with and (suspected) exposure to infections with a predominantly sexual mode of transmission
CPT/HCPCS: 57500; 81025; 81515; 87491; 87591; 87626; 88175; 88305; 99202